=== PATIENT | male | born 1950 | race Caucasian/White ===

== ENCOUNTER 2020-12-24 17:24 | Emergency (ER) | payer MEDICARE, SELFPAY ==
[2020-12-24 17:32] VITALS: BP 180/87; PULSE 83; RESP 16; TEMP 36.4; O2SAT 95; BMI 26.6
--- NOTE | 2020-12-24 17:33 | ECG_ITS ---
[facility] Test Date: 2020-12-24 Pat Name: Billy Lenz Department: Room: Gender: Male Group Segment Consultant: : 1950 Requested By: Maricruz Beltran Order Number: [id number] Gregory MD: Mel Benjamin M.D. Measurements Intervals [place] Rate: 79 P: 52 NH: 154 QRS: -11 QRSD: 88 T: 28 QT: 362 QTc: 416 Interpretive Statements SINUS RHYTHM MODERATE ST DEPRESSION [0.05+ mV ST DEPRESSION] No previous ECG available for comparison Electronically Signed On 12-24-2020 18:40:43 CONTACT LENS FLASHING PUNCHER by Mel Benjamin M.D. [id number]
--- NOTE | 2020-12-24 17:46 | CTR_ITS ---
PROCEDURE INFORMATION: Exam: CT Head Without Contrast Exam date and time: 12/24/2020 5:49 PM Age: 70 years old Clinical indication: Altered mental status/memory loss; Additional info: AMS, HX of tbi TECHNIQUE: Imaging protocol: Computed tomography of the head without contrast. Radiation optimization: All CT scans at this facility use at least one of these dose optimization techniques: automated exposure control; mA and/or kV adjustment per patient size (includes targeted exams where dose is matched to clinical indication); or iterative reconstruction. COMPARISON: No relevant prior studies available. RADIATION DOSE METRICS: Total DLP (mGy-cm): 859.69 FINDINGS: Brain: No evidence of acute infarct. No mass or mass effect. No intra axial hemorrhage. No extra axial fluid collection or hemorrhage. Scattered white matter hypodensities likely from chronic microvascular ischemic disease. Cerebral ventricles: Symmetric and without enlargement. Bones/joints: No acute fracture. Paranasal sinuses: Visualized sinuses are well aerated. Mastoid air cells: Visualized mastoid air cells are well aerated. Soft tissues: No concerning abnormalities. CT/CT head wo con* [id number] IMPRESSION: No acute intracranial abnormality. Radiation Dose CTDIVOL = (mGy): DLP = 859.69 (mGy-cm)
[2020-12-24 18:09] LABS: Add Urine Microscopic? NO
[2020-12-24 18:23] LABS: Bilirubin Urine Neg (Negative); Blood Urine Neg (Negative); Glucose Urine UA Norm (Normal); Ketones Urine Negative (Negative); Leukocyte Esterase Urine Negative (Negative); Nitrate Urine Negative (Negative); Protein Urine Neg (Negative); Urine Appearance Clear (CLEAR); Urine Color Yellow (Yellow); Urobilinogen Urine 4 mg/dL (Negative); pH Urine 5 (5-7)
[2020-12-24 18:31] LABS: Amphetamines Screen Urine Negative (Negative); Barbiturates Screen Urine Negative (Negative); Benzodiazepines Screen Urine Negative (Negative); Cocaine Screen Urine Negative (Negative); Opiate Screen Urine Negative (Negative); PCP Screen Urine Negative (Negative); THC Screen Urine Negative (Negative)
[2020-12-24 19:10] LABS: Basophils # 0.1 10^3/uL (0.0-0.1); Basophils % 0.5 %; Eosinophils # 0.1 10^3/uL (0.0-0.8); Eosinophils % 0.8 %; Hematocrit 46.3 % (42.0-52.0); Hemoglobin 15.1 g/dL (11.7-16.6); Lymphocytes # 2.1 10^3/uL (0.8-4.8); Lymphocytes % 18.5 %; Mean Corpuscular HGB Conc 32.6 g/dL (30.0-36.0); Mean Corpuscular Hemoglobin 31.5 pg (28.0-34.0); Mean Corpuscular Volume 96.5 fL (80-94); Mean Platelet Volume 10.2 fL (7.4-10.4); Monocytes # 1.1 10^3/uL (0.2-0.9); Monocytes % 9.9 %; Neutrophils # 7.91 10^3/uL (1.8-7.7); Neutrophils % 69.9 %; Nucleated Red Blood Cells % 0 %; Platelet Count 301 10^3/cmm (130-400); Red Cell Distribution Width 12.7 % (12.1-15.1); White Blood Count 11.3 10^3/uL (4.0-10.0)
[2020-12-24 19:12] VITALS: RESP 18
--- NOTE | 2020-12-24 19:49 | ED_ITS ---
Documented by User: Maricruz Beltran MD 12/25/20 19:07 HPI - Psych General: Chief Complaint: Psychiatric Symptoms Stated Complaint: SI, EXPLOSVIE BEHAVIOR Time Seen by Provider: 12/24/20 17:32 Source: patient, family and other (PCP) Mode of arrival: EMS History of Present Illness: HPI Narrative: 70-year-old male brought in by EMS from PCPs office for acute behavior changes including paranoid delusions and passive suicidal ideations that have developed over the past 48 to 72 hours. No recent medication changes. His family denies regular alcohol use or any drug use. He developed some personality changes after a traumatic brain injury several years ago, but has never had paranoid delusions before. His 2 adult children are here to provide affidavits. They state that he has become increasingly agitated and suspicious that his is having an affair with her [id number], and has refused to believe any evidence to the contrary. He believes that his family is lying to him, and has frequent angry outbursts, crying, using profanity around his grandchildren, accusing family members of illogical offenses: All of which is very uncharacteristic for him. His has gone to stay with family because she feels unsafe in the house with him. He has not had visual or auditory hallucinations. He has made statements to his children about wanting kill himself so that she will not have to bother getting a divorce, and they(his grown children) can have a new father . He admitted to his son that he is contemplated shooting himself in the past 2 days. He does have several guns in his house, and his children have become very worried about both his and their mothers safety. He has not slept in 3 days, has had minimal food and drink. He has brief periods of lucidity, his children say, where he comments on how labile his mood is. complaint: suicidal ideation and altered mental status Onset (ago): day(s) Duration: intermittent and getting worse History of same: No Relieving factors: none Exacerbating factors: none Associated symptoms: Reports delusions, depression, suicidal ideation and racing thoughts; Deny auditory hallucinations or visual hallucinations If self harm: admits thoughts of self harm Review of Systems Const: Denies: fever(s) or chills Eyes: Denies: change in vision or blurry vision ENMT: Denies: odynophagia Card: Denies: chest pain, palpitations or irregular heart rhythm Resp: Denies: dyspnea or productive cough GI: Denies: nausea, vomiting or hematemesis Musc: Reports: back pain, extremity pain, joint pain and joint stiffness Skin/Breast: Denies: rash, pruritus or erythema Neuro: Denies: headache(s) or lack of coordination Psych: Reports: anxiety, depression, mood swings, sleeping less, hopelessness, loss of interest, change in appetite, irritability, paranoia, memory loss and suicidal ideation; Denies: visual hallucinations, auditory hallucinations or tactile hallucinations Endo: Denies: polyuria, polydipsia or excessive sweating Physical Exam Const: COMMON NORMALS: no acute distress, average body habitus and patient oriented x3 GENERAL APPEARANCE: cooperative; not in distress, not anxious and not ill appearing HENMT: COMMON NORMALS: normocephalic and atraumatic HEAD & SCALP: normocephalic and atraumatic FACE & SINUS: normal facial exam and face symmetric Eye: COMMON NORMALS: Equal, round and reactive pupils present, EOMs intact bilaterally, conjunctivae normal and no scleral icterus CONJUNCTIVA: Yes conjunctivae normal PUPIL: Yes Equal, round and reactive pupils present Neck/C-Spine: COMMON NORMALS: full ROM, no lymphadenopathy, supple and no JVD Resp: COMMON NORMALS: normal respiratory effort, No retractions and No use of accessory muscles EFFORT & INSPECTION: Yes able to speak in complete sentences Cardio: COMMON NORMALS: no JVD, regular rate and regular rhythm RATE: regular rate RHYTHM: regular rhythm GI: COMMON NORMALS: Normal to inspection, nondistended, normoactive bowel sounds present, Soft to palpation and non-tender PALPATION: Yes Soft to palpation Extremity: COMMON NORMALS: normal to inspection, full ROM and capillary refill normal Psych: COMMON NORMALS: speech normal APPEARANCE: Yes disheveled ATTITUDE: Yes calm, Yes Withdrawn affect present and Yes Guarded attititude/behavior present ACTIVITY/MOTOR BEHAVIOR: Yes appropriate eye contact SPEECH: Yes normal speech MOOD & AFFECT: Yes depressed mood, Yes apathetic and Yes Flat affect present THOUGHT PROCESS: Flight of ideas present and Perseverating thought process present THOUGHT CONTENT: Yes Suicidality present, Yes delusions and Yes rumination(s) MEMORY/COGNITION: Yes memory grossly impaired INSIGHT: Poor insight present (Psych) JUDGEMENT: Poor judgement present (Psych) MDM - Psych MDM Narrative: Medical decision making narrative: 70-year-old male with acute onset of paranoid delusions, suicidality, racing thoughts, and insomnia. Family members are very concerned for both his and their mother's safety, as he has become convinced she is having an affair and cannot be dissuaded. CT head negative for any acute abnormality. He does have a remote history of TBI that caused some emotional disturbances following, but nothing compared to these recent symptoms. CBC is normal. Tox screen negative. Chemistry suggests volume depletion, otherwise unremarkable. Family members have provided affidavits, which I have reviewed. The patient at this time is voluntarily agreeing with inpatient psychiatric evaluation. Based on the report from his PCP as well as the affidavits from his family members, I believe he should be held involuntarily if he changes his mind. At this time he is medically stable, pending Covid test results. His routine evening medication was administered. He declines any other psychotropic medications. He is calm and cooperative at this time and has not required any restraints. He is on one-to-one observation. I spoke with Dr. Boyd, on-call psychiatrist for psych unit here to ask if there is any possibility the patient will be admitted here despite him being over the age of 66. While he will not be able to be admitted here, Dr. Boyd said that he would be available to consult on any acute changes if the patient was here in the ED for prolonged period of time. In addition he recommended starting a low-dose of Risperdal, 0.5 mg twice daily, which I will order. The patient has also been given his routine blood pressure medications in addition to another dose of tizanidine and tramadol for pain. There is not any bed availability at [facility] yet, awaiting response from the few other facilities at this time. Lab Data: Labs: Lab Results 12/24/20 12/24/20 12/24/20 Range/Units 17:54 17:54 18:55 WBC 11.3 H (4.0-10.0) 10^3/ uL RBC 4.80 (4.1-5.3) 10^6/u L Hgb 15.1 (11.7-16.6) g/dL Hct 46.3 (42.0-52.0) % MCV 96.5 H (80-94) fL MCH 31.5 (28.0-34.0) pg MCHC 32.6 (30.0-36.0) g/dL RDW 12.7 (12.1-15.1) % Plt Count 301 (130-400) 10^3/c mm MPV 10.2 (7.4-10.4) fL Neut % (Auto) 69.9 % Lymph % (Auto) 18.5 % [place] % (Auto) 9.9 % Eos % (Auto) 0.8 % Baso % (Auto) 0.5 % Neut # (Auto) 7.91 H (1.8-7.7) 10^3/u L Lymph # (Auto) 2.1 (0.8-4.8) 10^3/u L [place] # (Auto) 1.1 H (0.2-0.9) 10^3/u L Eos # (Auto) 0.1 (0.0-0.8) 10^3/u L Baso # (Auto) 0.1 (0.0-0.1) 10^3/u L Nucleated RBC % (a uto) 0 % Nucleated RBCs # 0.0 /100WBC Sodium (136-145) mmol/L Potassium (3.5-5.1) mmol/L Chloride (98-107) mmol/L Carbon Dioxide (22-29) mmol/L Anion Gap (5-19) BUN (8-23) mg/dL Creatinine (0.7-1.2) mg/dL GFR Calculation (90-130) mL/min Glucose (65-115) mg/dL Calculated Osmolal ity (285-295) mOsm/k g Calcium (8.5-10.5) mg/dL Total Bilirubin (0.15-1.2) mg/dL AST (0-40) U/L ALT (0-41) U/L Alkaline Phosphata se (40-130) IU/L Total Protein (6.6-8.7) g/dL Albumin (3.5-5.2) g/dL Globulin (1.3-4.6) g/dL TSH (0.27-4.20) uIU/ mL Urine Color Yellow (Yellow) Urine Appearance Clear (CLEAR) Urine pH 5 (5-7) Ur Specific Gravit y 1.020 (1.005-1.030) Urine Protein Neg (Negative) Urine Glucose (UA) Norm (Normal) Urine Ketones Negative (Negative) Urine Blood Neg (Negative) Urine Nitrate Negative (Negative) Urine Bilirubin Neg (Negative) Urine Urobilinogen 4 H (Negative) mg/dL Ur Leukocyte Divya ase Negative (Negative) Salicylates (3-10) mg/dL Urine Opiates Scre en Negative (Negative) ng/mL Acetaminophen (10-30) ug/mL Ur Barbiturates Sc reen Negative (Negative) ng/mL Ur Phencyclidine S crn Negative (Negative) ng/mL Ur Amphetamines Sc reen Negative (Negative) ng/mL U Benzodiazepines Scrn Negative (Negative) ng/mL Urine Cocaine Scre en Negative (Negative) ng/mL U Marijuana (THC) Screen Negative (Negative) ng/mL Ethyl Alcohol (0-10) mg/dL Nasal/Oral COVID-1 9 PCR SARS-CoV-2 Ag (Rap id) (Negative) 12/24/20 12/24/20 12/25/20 Range/Units 18:55 20:30 02:30 WBC (4.0-10.0) 10^3/ uL RBC (4.1-5.3) 10^6/u L Hgb (11.7-16.6) g/dL Hct (42.0-52.0) % MCV (80-94) fL MCH (28.0-34.0) pg MCHC (30.0-36.0) g/dL RDW (12.1-15.1) % Plt Count (130-400) 10^3/c mm MPV (7.4-10.4) fL Neut % (Auto) % Lymph % (Auto) % [place] % (Auto) % Eos % (Auto) % Baso % (Auto) % Neut # (Auto) (1.8-7.7) 10^3/u L Lymph # (Auto) (0.8-4.8) 10^3/u L [place] # (Auto) (0.2-0.9) 10^3/u L Eos # (Auto) (0.0-0.8) 10^3/u L Baso # (Auto) (0.0-0.1) 10^3/u L Nucleated RBC % (a uto) % Nucleated RBCs # /100WBC Sodium 138 (136-145) mmol/L Potassium 4.2 (3.5-5.1) mmol/L Chloride 106 (98-107) mmol/L Carbon Dioxide 21 L (22-29) mmol/L Anion Gap 15.2 (5-19) BUN 24 H (8-23) mg/dL Creatinine 1.4 H (0.7-1.2) mg/dL GFR Calculation 50.4 L (90-130) mL/min Glucose 107 (65-115) mg/dL Calculated Osmolal ity 291 (285-295) mOsm/k g Calcium 9.4 (8.5-10.5) mg/dL Total Bilirubin 0.5 (0.15-1.2) mg/dL AST 24 (0-40) U/L ALT 21 (0-41) U/L Alkaline Phosphata se 81 (40-130) IU/L Total Protein 7.3 (6.6-8.7) g/dL Albumin 4.0 (3.5-5.2) g/dL Globulin 3.3 (1.3-4.6) g/dL TSH 1.76 (0.27-4.20) uIU/ mL Urine Color (Yellow) Urine Appearance (CLEAR) Urine pH (5-7) Ur Specific Gravit y (1.005-1.030) Urine Protein (Negative) Urine Glucose (UA) (Normal) Urine Ketones (Negative) Urine Blood (Negative) Urine Nitrate (Negative) Urine Bilirubin (Negative) Urine Urobilinogen (Negative) mg/dL Ur Leukocyte Divya ase (Negative) Salicylates 0.5 L (3-10) mg/dL Urine Opiates Scre en (Negative) ng/mL Acetaminophen < 5.0 L (10-30) ug/mL Ur Barbiturates Sc reen (Negative) ng/mL Ur Phencyclidine S crn (Negative) ng/mL Ur Amphetamines Sc reen (Negative) ng/mL U Benzodiazepines Scrn (Negative) ng/mL Urine Cocaine Scre en (Negative) ng/mL U Marijuana (THC) Screen (Negative) ng/mL Ethyl Alcohol < 10 (0-10) mg/dL Nasal/Oral COVID-1 9 PCR Not detected SARS-CoV-2 Ag (Rap id) Negative (Negative) Discharge Plan Discharge Patient Disposition: Xfer Other Clinical Impression: Suicidal ideation, Paranoid psychosis, Acute alteration in mental status Condition: Stable Coding Level of Care Code ED Acting Professor for Chg Fwd Exam Comprehensive Documented by User: David Palacio MD 12/25/20 18:31 HPI - Psych General: Chief Complaint: Psychiatric Symptoms Stated Complaint: SI, EXPLOSVIE BEHAVIOR Time Seen by Provider: 12/24/20 17:32 MDM - Psych MDM Narrative: Medical decision making narrative: Hakeem: No events on my shift. Stable for transfer. He has been accepted and waiting transfer. Lab Data: Labs: Lab Results 12/24/20 12/24/20 12/24/20 Range/Units 17:54 17:54 18:55 WBC 11.3 H (4.0-10.0) 10^3/ uL RBC 4.80 (4.1-5.3) 10^6/u L Hgb 15.1 (11.7-16.6) g/dL Hct 46.3 (42.0-52.0) % MCV 96.5 H (80-94) fL MCH 31.5 (28.0-34.0) pg MCHC 32.6 (30.0-36.0) g/dL RDW 12.7 (12.1-15.1) % Plt Count 301 (130-400) 10^3/c mm MPV 10.2 (7.4-10.4) fL Neut % (Auto) 69.9 % Lymph % (Auto) 18.5 % [place] % (Auto) 9.9 % Eos % (Auto) 0.8 % Baso % (Auto) 0.5 % Neut # (Auto) 7.91 H (1.8-7.7) 10^3/u L Lymph # (Auto) 2.1 (0.8-4.8) 10^3/u L [place] # (Auto) 1.1 H (0.2-0.9) 10^3/u L Eos # (Auto) 0.1 (0.0-0.8) 10^3/u L Baso # (Auto) 0.1 (0.0-0.1) 10^3/u L Nucleated RBC % (a uto) 0 % Nucleated RBCs # 0.0 /100WBC Sodium (136-145) mmol/L Potassium (3.5-5.1) mmol/L Chloride (98-107) mmol/L Carbon Dioxide (22-29) mmol/L Anion Gap (5-19) BUN (8-23) mg/dL Creatinine (0.7-1.2) mg/dL GFR Calculation (90-130) mL/min Glucose (65-115) mg/dL Calculated Osmolal ity (285-295) mOsm/k g Calcium (8.5-10.5) mg/dL Total Bilirubin (0.15-1.2) mg/dL AST (0-40) U/L ALT (0-41) U/L Alkaline Phosphata se (40-130) IU/L Total Protein (6.6-8.7) g/dL Albumin (3.5-5.2) g/dL Globulin (1.3-4.6) g/dL TSH (0.27-4.20) uIU/ mL Urine Color Yellow (Yellow) Urine Appearance Clear (CLEAR) Urine pH 5 (5-7) Ur Specific Gravit y 1.020 (1.005-1.030) Urine Protein Neg (Negative) Urine Glucose (UA) Norm (Normal) Urine Ketones Negative (Negative) Urine Blood Neg (Negative) Urine Nitrate Negative (Negative) Urine Bilirubin Neg (Negative) Urine Urobilinogen 4 H (Negative) mg/dL Ur Leukocyte Divya ase Negative (Negative) Salicylates (3-10) mg/dL Urine Opiates Scre en Negative (Negative) ng/mL Acetaminophen (10-30) ug/mL Ur Barbiturates Sc reen Negative (Negative) ng/mL Ur Phencyclidine S crn Negative (Negative) ng/mL Ur Amphetamines Sc reen Negative (Negative) ng/mL U Benzodiazepines Scrn Negative (Negative) ng/mL Urine Cocaine Scre en Negative (Negative) ng/mL U Marijuana (THC) Screen Negative (Negative) ng/mL Ethyl Alcohol (0-10) mg/dL Nasal/Oral COVID-1 9 PCR SARS-CoV-2 Ag (Rap id) (Negative) 12/24/20 12/24/20 12/25/20 Range/Units 18:55 20:30 02:30 WBC (4.0-10.0) 10^3/ uL RBC (4.1-5.3) 10^6/u L Hgb (11.7-16.6) g/dL Hct (42.0-52.0) % MCV (80-94) fL MCH (28.0-34.0) pg MCHC (30.0-36.0) g/dL RDW (12.1-15.1) % Plt Count (130-400) 10^3/c mm MPV (7.4-10.4) fL Neut % (Auto) % Lymph % (Auto) % [place] % (Auto) % Eos % (Auto) % Baso % (Auto) % Neut # (Auto) (1.8-7.7) 10^3/u L Lymph # (Auto) (0.8-4.8) 10^3/u L [place] # (Auto) (0.2-0.9) 10^3/u L Eos # (Auto) (0.0-0.8) 10^3/u L Baso # (Auto) (0.0-0.1) 10^3/u L Nucleated RBC % (a uto) % Nucleated RBCs # /100WBC Sodium 138 (136-145) mmol/L Potassium 4.2 (3.5-5.1) mmol/L Chloride 106 (98-107) mmol/L Carbon Dioxide 21 L (22-29) mmol/L Anion Gap 15.2 (5-19) BUN 24 H (8-23) mg/dL Creatinine 1.4 H (0.7-1.2) mg/dL GFR Calculation 50.4 L (90-130) mL/min Glucose 107 (65-115) mg/dL Calculated Osmolal ity 291 (285-295) mOsm/k g Calcium 9.4 (8.5-10.5) mg/dL Total Bilirubin 0.5 (0.15-1.2) mg/dL AST 24 (0-40) U/L ALT 21 (0-41) U/L Alkaline Phosphata se 81 (40-130) IU/L Total Protein 7.3 (6.6-8.7) g/dL Albumin 4.0 (3.5-5.2) g/dL Globulin 3.3 (1.3-4.6) g/dL TSH 1.76 (0.27-4.20) uIU/ mL Urine Color (Yellow) Urine Appearance (CLEAR) Urine pH (5-7) Ur Specific Gravit y (1.005-1.030) Urine Protein (Negative) Urine Glucose (UA) (Normal) Urine Ketones (Negative) Urine Blood (Negative) Urine Nitrate (Negative) Urine Bilirubin (Negative) Urine Urobilinogen (Negative) mg/dL Ur Leukocyte Divya ase (Negative) Salicylates 0.5 L (3-10) mg/dL Urine Opiates Scre en (Negative) ng/mL Acetaminophen < 5.0 L (10-30) ug/mL Ur Barbiturates Sc reen (Negative) ng/mL Ur Phencyclidine S crn (Negative) ng/mL Ur Amphetamines Sc reen (Negative) ng/mL U Benzodiazepines Scrn (Negative) ng/mL Urine Cocaine Scre en (Negative) ng/mL U Marijuana (THC) Screen (Negative) ng/mL Ethyl Alcohol < 10 (0-10) mg/dL Nasal/Oral COVID-1 9 PCR Not detected SARS-CoV-2 Ag (Rap id) Negative (Negative) Discharge Plan Discharge Patient Disposition: Xfer Other Clinical Impression: Suicidal ideation, Paranoid psychosis, Acute alteration in mental status Condition: Stable Coding Level of Care Code ED Acting Professor for Carla Fwd Exam Comprehensive
[2020-12-24 19:52] LABS: Alanine Aminotransferase 21 U/L (0-41); Alkaline Phosphatase 81 IU/L (40-130); Anion Gap 15.2 (5-19); Aspartate Amino Transferase 24 U/L (0-40); Blood Urea Nitrogen 24 mg/dL (8-23); Calcium 9.4 mg/dL (8.5-10.5); Carbon Dioxide 21 mmol/L (22-29); Chloride 106 mmol/L (98-107); Globulin 3.3 g/dL (1.3-4.6); Glomerular Filtration Rate 50.4 mL/min (90-130); Glucose 107 mg/dL (65-115); Osmolality Calculated 291 mOsm/kg (285-295); Potassium 4.2 mmol/L (3.5-5.1); Salicylate 0.5 mg/dL (3-10); Sodium 138 mmol/L (136-145); Thyroid Stimulating Hormone 1.76 uIU/mL (0.27-4.20); Total Bilirubin 0.5 mg/dL (0.15-1.2); Total Protein 7.3 g/dL (6.6-8.7)
[2020-12-24 19:54] LABS: Acetaminophen < 5.0 ug/mL (10-30); Alcohol Level < 10 mg/dL (0-10)
[2020-12-24 21:30] VITALS: BP 165/89; PULSE 81; O2SAT 97
[2020-12-24] MEDS: metoprolol tartrate 50 mg Tablet PO (21:30)
[2020-12-24] MEDS: tizanidine 4 mg Tablet PO (22:09)
--- NOTE | 2020-12-25 00:29 | XRR_ITS ---
PROCEDURE INFORMATION: Exam: XR Chest Exam date and time: 12/25/2020 12:32 AM Age: 70 years old Clinical indication: Patient HX: Si. Deniees any chest complaints. ; Additional info: Transfer TECHNIQUE: Imaging protocol: XR of the chest Views: 1 view. COMPARISON: No relevant prior studies available. FINDINGS: Lungs: Unremarkable. No consolidation. Pleural spaces: Unremarkable. No pleural effusion. No pneumothorax. Heart/Mediastinum: Unremarkable. No cardiomegaly. Bones/joints: Unremarkable. XR/XR chest 1V portable [id number] IMPRESSION: Negative chest x-ray.
[2020-12-25 02:52] LABS: SARS Covid-2 Antigen Negative (Negative)
[2020-12-25 04:00] VITALS: BP 136/70; PULSE 72; RESP 16; O2SAT 94
--- NOTE | 2020-12-25 07:36 | PC.NURSE ---
patient denied any thoughts of harm self or harm others at this time. denied any pain or discomfort, no acute distress noted at this time.
[2020-12-25 07:54] VITALS: BP 147/52; PULSE 71; RESP 16; TEMP 36.6; O2SAT 96
--- NOTE | 2020-12-25 09:02 | PC.NURSE ---
attempted to call [facility] for updates, called back pending
--- NOTE | 2020-12-25 10:28 | PC.NURSE ---
called [facility], adviced they will call back.
[2020-12-25 11:14] VITALS: BP 179/82; PULSE 90; RESP 18; O2SAT 98
[2020-12-25] MEDS: metoprolol tartrate 50 mg Tablet PO (11:42)
--- NOTE | 2020-12-25 12:37 | PC.NURSE ---
Spoke with Jane at [facility] regarding pt intake. Jane confirms there is a male bed available, chart faxed.
[2020-12-25] MEDS: TRAMadol 50 mg Tablet PO (13:13)
[2020-12-25 13:19] VITALS: BP 185/82; PULSE 80; RESP 16; O2SAT 97
[2020-12-25] MEDS: tizanidine 4 mg Tablet PO (13:59)
[2020-12-25] MEDS: lisinopril 20 mg Tablet PO (13:59)
--- NOTE | 2020-12-25 14:42 | PC.NURSE ---
[facility] declined pt due to [place] hold and facility is in [place].
--- NOTE | 2020-12-25 15:15 | PC.NURSE ---
Called [facility] regarding placement, no answer, message left.
--- NOTE | 2020-12-25 15:16 | PC.NURSE ---
Called [facility], no answer, message left.
--- NOTE | 2020-12-25 15:35 | PC.NURSE ---
Call placed to [facility] psych unit concerning patient placement. Was notified by Myla that they have been very busy and have not had a time to look at the patient's paperwork. Was reassured that they would look at his paper work next.
--- NOTE | 2020-12-25 17:06 | PC.NURSE ---
Re-faxed paperwork to [facility].
--- NOTE | 2020-12-25 17:20 | PC.NURSE ---
Spoke with Veronica again regarding pt acceptance, facility requesting PCR COVID, they do not accept Rapid Antigen. Veronica updated that pt has pending PCR from 2029 last night. Veronica states she will speak to her resource conservation manager and call back.
--- NOTE | 2020-12-25 17:51 | PC.NURSE ---
Spoke with Veronica at [facility] and they accepted pending PCR MICHAEL
[2020-12-25 18:05] LABS: Coronavirus Test Green County Not Detected
--- NOTE | 2020-12-25 18:15 | PC.NURSE ---
Faxed negative PCR to [facility]
[2020-12-25 18:43] VITALS: BP 157/67; PULSE 75; RESP 16; O2SAT 96
--- NOTE | 2020-12-25 18:48 | PC.NURSE ---
patient denied any pain at this time.
--- NOTE | 2020-12-25 19:20 | PC.NURSE ---
patient denies any thoughts of self harm at this time.
[2020-12-25 19:39] VITALS: BP 157/67; PULSE 75; RESP 16; O2SAT 97
== END 2020-12-25 19:40 | disposition other institution (70) ==
PROVIDERS: Emergency Provider Family Medicine
DX: R45.851 Suicidal ideations (principal); F22 Delusional disorders; R41.82 Altered mental status, unspecified
CPT/HCPCS: 70450; 71045; 80053; 80306; 80307; 81003; 84443; 85025; 87426; 87635; 93005; 99285